=== PATIENT | female | born 1995 | race Caucasian/White ===

== ENCOUNTER 2018-06-14 21:01 | Emergency (ER) | payer BC ==
[2018-06-14] MEDS ORDERED: HYDROcodone/ACETAMIN 5-325 MG* 1 TAB PO ONE (21:31)
--- NOTE | 2018-06-14 22:31 | ED ---
Upper Extremity Pain - HPI Summary HPI Summary: 23-year-old female presents with left elbow and knee pain today. States that she was playing soccer and she rolled her knee and ended up on her left elbow. She states the pain radiates to her wrist. Has full range of motion of the wrist. States she felt a crack in her left elbow. She states she has history of knee issues. She's not been able to place weight on the knee. Denies any hip pain or ankle pain. She is currently seen PT for her knee. no other injury. No head injury or loss consciousness. Has no medical conditions. Is right-handed. Is a student and works at [employer]. - History of Current Complaint Chief Complaint: EDExtremityUpper Stated Complaint: LT ARM AMD LEG INJURY Time Seen by Provider: 06/14/18 21:27 Hx Last Menstrual Period: 04/05/16 - Allergies/Home Medications Allergies/Adverse Reactions: Allergies Allergy/AdvReac Type Severity Reaction Status Date / Time No Known Allergies Allergy Verified 06/14/18 21:08 PMH/Surg Hx/FS Hx/Imm Hx Endocrine/Hematology History: Denies: Hx Diabetes, Hx Thyroid Disease Cardiovascular History: Denies: Hx Hypertension, Hx Pacemaker/ICD Respiratory History: Denies: Hx Asthma, Hx Chronic Obstructive Pulmonary Disease (COPD) GI History: Denies: Hx Ulcer History: Denies: Hx Renal Disease Musculoskeletal History: Denies: Hx Rheumatoid Arthritis, Hx Osteoporosis Sensory History: Denies: Hx Hearing Aid Psychiatric History: Denies: Hx Panic Disorder Infectious Disease History: No Infectious Disease History: Denies: Hx Clostridium Difficile, Hx Hepatitis, Hx Human Immunodeficiency Virus (HIV), Hx of Known/Suspected MRSA, Hx Shingles, Hx Tuberculosis, Hx Known/ Suspected VRE, Hx Known/Suspected VRSA, History Other Infectious Disease, Traveled Outside the [place] in Last 30 Days - Family History Family History: Patient reports no significant fam hx - Social History Alcohol Use: None Substance Use Type: Reports: None Smoking Status (MU): Never Smoked Tobacco Review of Systems Negative: Fever Negative: Chest Pain Negative: Shortness Of Breath Positive: Myalgia - left knee and elbow pain All Other Systems Reviewed And Are Negative: Yes Physical Exam Triage Information Reviewed: Yes Vital Signs On Initial Exam: Initial Vitals Temp Pulse Resp BP Pulse Ox 97.7 F 78 16 138/88 99 06/14/18 21:04 06/14/18 21:04 06/14/18 21:04 06/14/18 21:04 06/14/18 21:04 Vital Signs Reviewed: Yes Appearance: Positive: Well-Appearing Skin: Positive: Warm, Dry Head/Face: Positive: Normal Head/Face Inspection Eyes: Positive: Normal, Conjunctiva Clear ENT: Positive: Pharynx normal Respiratory/Lung Sounds: Positive: Clear to Auscultation, Breath Sounds Present Cardiovascular: Positive: Normal, RRR Musculoskeletal: Positive: Strength/ROM Intact - left knee with pain, Limited @ - left elbow, Other - tenderness left patella, tenderness left elbow, nontender left wrist. good pulses, good agile business analyst strenght, capillary refill<2 secs, sensation grossly intact. Neurological: Positive: Normal Psychiatric: Positive: Normal Diagnostics - Vital Signs Vital Signs Temp Pulse Resp BP Pulse Ox 06/14/18 21:04 97.7 F 78 16 138/88 99 - Laboratory Lab Statement: Any lab studies that have been ordered have been reviewed, and results considered in the medical decision making process. - Radiology knee Radiology Interpretation Completed By: ED Physician Summary of Radiographic Findings: no fracture elbow Radiology Interpretation Completed By: ED Physician Summary of Radiographic Findings: left radial head fracture Course/Dx - Course Course Of Treatment: 23-year-old female presents with left elbow and knee pain today. States that she was playing soccer and she rolled her knee and ended up on her left elbow. She states the pain radiates to her wrist. Has full range of motion of the wrist. States she felt a crack in her left elbow. She states she has history of knee issues. She's not been able to place weight on the knee. Denies any hip pain or ankle pain. She is currently seen PT for her knee. no other injury. No head injury or loss consciousness. Has no medical conditions. Is right-handed. Is a student and works at [employer]. On exam tenderness over left elbow and left patella. Neurovascular intact. X-ray knee is normal. X-ray of elbow shows a radial head fracture. Discussed with Dr. Joseph and we'll place in sling. Told to follow-up with ortho. Told to ice and elevate. Patient understands agrees the plan. - Diagnoses Differential Diagnosis/HQI/PQRI: Positive: Contusion, Fracture (Closed), Strain Provider Diagnoses: Left radial head fracture, Left knee pain Discharge - Sign-Out/Discharge Documenting (check all that apply): Patient Departure Patient Received Moderate/Deep Sedation with Procedure: No - Discharge Plan Condition: Good Disposition: HOME Prescriptions: HYDROcodone/ACETAMIN 5-325 MG* [[place] 5-325 TAB*] 1 tab PO Q6H PRN #16 tab MDD 4 PRN Reason: Pain Patient Education Materials: Elbow Fracture (ED) Referrals: Gerardo Mcdowell MD [Primary Care Provider] - Rachele Caraballo MD [Medical Doctor] - Additional Instructions: use sling for area ice, elevate Call ortho office tomorrow to set up appointment for follow up Use ibuprofen for pain every 6 hours and use norco for breakthrough pain every 6 hours Return to ED if develop any new or worsening symptoms - Billing Disposition and Condition Condition: GOOD Disposition: Home
[2018-06-14 22:54] VITALS: BP 118/60
== END 2018-06-14 22:53 | disposition home or self-care (01) ==
LOC: ED 21:01
DX: S52.122A Displaced fracture of head of left radius, initial encounter for closed fracture (principal); M25.562 Pain in left knee; W18.30XA Fall on same level, unspecified, initial encounter; Y93.66 Activity, soccer; Y92.39 Other specified sports and athletic area as the place of occurrence of the external cause
CPT/HCPCS: 99282

== ENCOUNTER 2018-09-19 11:22 | Day surgery (SDC) | payer BC ==
[~2018-09-19 11:22] MED LIST: Buffered Lidocaine 1% SYRIN* 1 ML/SYRINGE INTRADERM ONE; Dexamethasone IV* 4 MG/ML 1 ML (4 MG) IV SLOW PU ONE; Famotidine IV* 10 MG/ML 2 ML (20 mg) IV ONE; Lactated Ringers 1000 ML Bag* 1,000 ML IV SCH
[2018-09-19] MEDS ORDERED: ceFAZolin 2 GM PREMIX in ORs 2 GM/50 ML BAG IVPB ONE (11:35)
[2018-09-19] MEDS ORDERED: Dexamethasone IV* 4 MG/ML 1 ML (4 MG) ONE (11:56)
[2018-09-19] MEDS ORDERED: Famotidine IV* 10 MG/ML 2 ML (20 mg) ONE (11:57)
[2018-09-19] MEDS ORDERED: Bupivacaine 0.25% SDV* 30 ML ONE (13:08)
[2018-09-19] MEDS ORDERED: fentaNYL* 50 MCG/ML 2 ML VIAL (100 MCG VIAL) ONE ×2 (13:35→15:54)
[2018-09-19] MEDS ORDERED: Lidocaine 2% PF * 5 ML VIAL ONE (13:35)
[2018-09-19] MEDS ORDERED: Midazolam* 1 MG/ML 5 ML VIAL (5 MG) ONE (13:35)
[2018-09-19] MEDS ORDERED: Propofol* 10 MG/ML 20 ML BTL ONE (13:35)
[2018-09-19] MEDS ORDERED: Ketorolac INJ* 30 MG/ML 1 ML VIAL ONE (14:16)
[2018-09-19] MEDS ORDERED: EPHEDrine (Pressors)* 50 MG/ML VIAL ONE (14:27)
[2018-09-19 17:49] VITALS: BP 125/86
--- NOTE | 2018-09-20 00:06 | OP ---
OPERATIVE REPORT: DATE OF OPERATION: 09/19/18 - RACHEL DATE OF : 89 SURGEON: Gerardo Jiang MD. [employer] CONSULTANT: ROBERTA Marcus. An speech language pathologist assistant was needed for the entirety of the procedure to aid in positioning of the arm and retraction. ANESTHESIOLOGIST: Dr. Ramírez followed by Dr. Lipscomb. ANESTHESIA: General. PRE-OP DIAGNOSIS: Left chronic radial head fracture dislocation. POST-OP DIAGNOSIS: 1. Left chronic radial head fracture dislocation. 2. Left elbow lateral ulnar collateral ligament tearing off the lateral epicondyle. OPERATIVE PROCEDURE: 1. Treatment of 3-month-old left radial head fracture dislocation with radial head arthroplasty. 2. Left elbow lateral ulnar collateral ligament repair. INDICATIONS: Rubi had the injury almost 3 months ago. She had been treated elsewhere. Ultimately, she was not getting better, so they came to see me. I got a CT scan. The radial head is dislocated, is very displaced. It looks like it is probably healed, it is very displaced. We talked about her treatment options. She had wanted to proceed with surgery. Options include radial head arthroplasty or radial head excision. Given that it is still fairly acute since the injury, I told her I would favor placing a radial head arthroplasty which may need to come out at a later date. ESTIMATED BLOOD LOSS: 2 mL. COMPLICATIONS: None. FINDINGS: See above and below DESCRIPTION OF PROCEDURE: Rubi was seen in the preoperative holding area. The correct site, side, and procedure were identified. We came back to the operating room where the arm was prepped and draped in the usual fashion and time-out was performed. The arm was exsanguinated with the Esmarch and the tourniquet was inflated to 250 mmHg. I went ahead and made an incision centered over the lateral epicondyle. Dissection was carried down and full-thickness flaps were raised off the extensor tendon fascia. I then went ahead and made an arthrotomy staying anterior to the mid aspect of the lateral epicondyle and into the equator of the radial head. I could reduce and dislocate the radial head simply by pronating and supinating. She did lack full pronation due to this. I did a more extensile lateral release releasing some of the soft tissue off the anterior aspect of the supracondylar ridge of the distal humerus. I dissected down the soft tissue that was extremely thickened and chronically deformed due to the chronic fracture dislocation. Ultimately, I was able to release the soft tissue around the radial head and neck, placed a couple of baby Hohmanns around the radial neck. The radial head was not salvageable. I took the sagittal saw and went ahead and excised it what I thought was the appropriate level. I took some time excising all the synovitis and tissue that had become interposed at the site where the radial ought to have been. Once I had the elbow joint nice and clean, I went ahead and broached up to the appropriate size which was a size 8. This was the ALIGN radial head arthroplasty system. I then measured my radial head. It was so difficult that it was very deformed. I templated preoperatively and went with a 20-mm radial head. I did a 2-mm neck. I went ahead and placed the trial and everything looked good. I therefore went ahead and placed the definitive stem followed by the 20-mm head. She did have a very interesting sigmoid notch, it did curve much more posteriorly around the posterior aspect of the radial head. It did not look like this was related to the fracture but looking more like it was just the particular anatomy of her sigmoid notch. At this point everything was stable. I did note that she had peel off and lot of degeneration at the origin of the lateral ulnar collateral ligament. I decided to go ahead and tighten up the lateral soft tissue structures. I placed a DePuy Mitek GII anchor at the center of rotation of the lateral epicondyle. I then used the Orthocord suture, whipstitched down into the lateral ulnar collateral ligament. I then came up and I repaired the ligament back down to the bony origin. I tightened the lateral soft tissues nicely. I then performed a nice tight closure of the lateral soft tissue structures with 0 Vicryl suture. Subcutaneous tissue was reapproximated with 3-0 Vicryl suture, skin was closed with 3-0 nylon suture. 0.25% Marcaine was infiltrated all around the operative area. Wounds were dressed. A long-arm splint with a lateral buttress was applied. She was woken up and taken to the recovery room in stable condition. [id number]/[facility] #: [id number] ARIAS
== END 2018-09-19 17:45 | disposition home or self-care (01) ==
LOC: OREAST 11:22
PROVIDERS: ATTEND Orthopaedic Surgery Hand Surgery
DX: S52.122P Displaced fracture of head of left radius, subsequent encounter for closed fracture with malunion (principal); S53.442D Ulnar collateral ligament sprain of left elbow, subsequent encounter; W19.XXXD Unspecified fall, subsequent encounter; Y93.66 Activity, soccer; Y92.322 Soccer field as the place of occurrence of the external cause
CPT/HCPCS: 81025; 88305; 88311; C1713; C1776; J0690; J1100; J1885; J2250; J2704; J3010; J3490

== ENCOUNTER 2022-03-24 10:32 | Inpatient (IN) ==
[2022-03-24 12:48] LABS: Hematocrit 43 % (35-47); Hemoglobin 14.6 g/dL (12.0-16.0); Mean Corpuscular HGB Conc 34 g/dL (31-36); Mean Corpuscular Hemoglobin 31 pg (27-31); Mean Corpuscular Volume 92 fL (80-97); Mean Platelet Volume 10.3 fL (7.4-10.4); Platelet Count 154 10^3/uL (150-450); Red Blood Count 4.65 10^6 /uL (3.70-4.87); Red Cell Distribution Width 13 % (10-15); White Blood Count 12.6 10^3/uL (3.5-10.8)
[2022-03-24 13:10] LABS: Activated Partial Thrombo Time 30.1 seconds (26.0-38.0); INR 0.9 (0.89-1.11); Urine Benzodiazepine Screen None Detected (None Detect); Urine Cannabinoids Screen None Detected (None Detect); Urine Opiates Screen None Detected (None Detect)
[2022-03-24 13:18] LABS: Urine Appearance Clear; Urine Bilirubin Negative (Negative); Urine Blood 2+ (Negative); Urine Color Yellow; Urine Glucose Negative (Negative); Urine Ketones Negative (Negative); Urine Nitrite Negative (Negative); Urine Protein Negative (Negative); Urine Specific Gravity 1.008 (1.002-1.030); Urine Urobilinogen Negative (Negative)
[2022-03-24 13:20] LABS: Albumin 3.6 g/dL (3.2-5.2); Albumin/Globulin Ratio 1.4 (1-3); Direct Bilirubin 0.1 mg/dL (0.03-0.18); Globulin 2.5 g/dL (2-4); Indirect Bilirubin 0.3 mg/dL (0.3-1.0); Potassium 4.1 mmol/L (3.5-5.0); Total Bilirubin 0.4 mg/dL (0.2-1.0); Total Protein 6.1 g/dL (6.4-8.9); Uric Acid 3.3 mg/dL (2.3-6.6); eGFR CKD-EPI 132.9 (>60)
[2022-03-24] MEDS ORDERED: Dinoprostone 10 MG VAG.SUPP VAGINAL ONE (13:27)
[2022-03-24 13:35] LABS: Urine Bacteria Absent (Absent); Urine Red Blood Cell 2+(6-10/hpf) (Absent); Urine Squamous Epithelial Cell Present (Absent); Urine White Blood Cell Trace(0-5/hpf) (Absent)
[2022-03-24] MEDS ORDERED: Promethazine INJ(RESTRICTED) 25 MG/ML 1 ml VIAL IV ONE (20:58)
[2022-03-24] MEDS ORDERED: Nalbuphine 10 MG/ML 1 ML VIAL IV ONE (20:58)
[2022-03-25] MEDS ORDERED: miSOPROStol 100 mcg TAB PO ONE (10:32)
[2022-03-25] MEDS ORDERED: Dinoprostone 10 MG VAG.SUPP VAGINAL ONE (15:21)
[2022-03-25] MEDS: Promethazine INJ(RESTRICTED) 25 MG/ML 1 ml VIAL IV PRN (22:25)
[2022-03-25] MEDS: Nalbuphine 10 MG/ML 1 ML VIAL IV PRN (22:26)
[2022-03-26] MEDS ORDERED: miSOPROStol 100 mcg TAB PO ONE ×2 (08:19→12:54)
[2022-03-26] MEDS ORDERED: Morphine 10 MG/ML VIAL (1 ml) IM ONE (17:52)
[2022-03-26] MEDS: Promethazine INJ(RESTRICTED) 25 MG/ML 1 ml VIAL IV PRN (21:49)
[2022-03-26] MEDS: Nalbuphine 10 MG/ML 1 ML VIAL IV PRN (21:50)
[2022-03-27] MEDS ORDERED: Oxytocin in LR 20,000 MILLI.UNIT/1,000 ML BAG IV SCH (09:30)
[2022-03-27] MEDS ORDERED: OBEPIDURAL (200 ML) 200 ML EPIDURAL ONE (18:02)
[2022-03-27] MEDS ORDERED: Lidocaine 1% w EPI 1:200,000 SDV 30 ML VIAL ONE ×2 (18:02→23:48)
[2022-03-27] MEDS ORDERED: Lactated Ringers 1000 ml BAG 500 ML IV PRN (18:44)
[2022-03-27] MEDS ORDERED: Phenylephrine 40 mcg/mL 10mL (400mcg) SYRINGE IV PUSH PRN ×2 (18:44)
[2022-03-27] MEDS ORDERED: Lactated Ringers 1000 ml BAG 1,000 ML IV ONE (18:44)
[2022-03-27] MEDS ORDERED: Sodium Citrate/Citric Acid LIQ 15 ML UDC PO PRN (18:44)
[2022-03-27] MEDS ORDERED: OBEPIDURAL (200 ML) 200 ML EPIDURAL SCH (19:00)
[2022-03-27] MEDS ORDERED: Lactated Ringers 1000 ml BAG 1,000 ML IV SCH ×2 (19:00)
[2022-03-27 20:26] LABS: Urine Appearance Clear; Urine Bilirubin Negative (Negative); Urine Blood Negative (Negative); Urine Color Yellow; Urine Glucose Negative (Negative); Urine Ketones 1+ (Negative); Urine Nitrite Negative (Negative); Urine Protein Negative (Negative); Urine Specific Gravity 1.018 (1.002-1.030); Urine Urobilinogen Negative (Negative)
[2022-03-27] MEDS ORDERED: fentaNYL 100 mcg/2 ml 50 MCG/ML VIAL ONE (23:47)
[2022-03-28] MEDS ORDERED: fentaNYL 100 mcg/2 ml 50 MCG/ML VIAL ONE (06:53)
[2022-03-28] MEDS ORDERED: Lidocaine 1% VIAL 10 MG/ML VIAL 30 ML ONE (10:16)
[2022-03-28] MEDS ORDERED: Glycerin ADULT 2.4 gm SUPP PR PRN (10:46)
[2022-03-28] MEDS ORDERED: Oxytocin in LR 20,000 MILLI.UNIT/1,000 ML BAG IV SCH (11:00)
[2022-03-28] MEDS ORDERED: Lactated Ringers 1000 ml BAG 1,000 ML IV SCH (11:00)
[2022-03-28] MEDS: Witch Hazel PAD JAR TOPICAL PRN (11:55)
[2022-03-28] MEDS: Dibucaine 1% OINT 28.35 GM TUBE PR PRN (11:55)
[2022-03-28] MEDS ORDERED: Oxytocin 10 UNITS/ML 1 ML VIAL IM ONE (13:00)
[2022-03-28] MEDS ORDERED: Lidocaine 1% MPF 5 ML VIAL ONE (17:06)
[2022-03-29 07:25] LABS: ABS Basophils 0.1 10^3/ul (0-0.2); ABS Eosinophils 0.1 10^3/ul (0-0.6); ABS Lymphocytes 2.4 10^3/ul (1.0-4.8); ABS Monocytes 0.9 10^3/ul (0-0.8); ABS Neutrophils 13.9 10^3/ul (1.5-7.7); Eosinophil % 0.8 %; Hematocrit 39 % (35-47); Lymphocyte % 13.9 %; Mean Corpuscular HGB Conc 34 g/dL (31-36); Mean Corpuscular Hemoglobin 31 pg (27-31); Mean Corpuscular Volume 93 fL (80-97); Mean Platelet Volume 10.2 fL (7.4-10.4); Platelet Count 139 10^3/uL (150-450); Red Blood Count 4.16 10^6 /uL (3.70-4.87); Red Cell Distribution Width 13 % (10-15); White Blood Count 17.4 10^3/uL (3.5-10.8)
[2022-03-29] MEDS: Dibucaine 1% OINT 28.35 GM TUBE PR PRN (11:25)
[2022-03-30 07:55] VITALS: BP 140/84
[2022-03-30] MEDS: Dibucaine 1% OINT 28.35 GM TUBE PR PRN (08:29)
[2022-03-30] MEDS: Witch Hazel PAD JAR TOPICAL PRN (08:29)
== END 2022-03-30 12:35 | disposition home or self-care (01) | DRG 560 ==
LOC: MCHOBOUT 10:32 → MCHOB 13:01
PROVIDERS: ADMIT Registered Nurse; ATTEND Registered Nurse